=== PATIENT | male | born 1970 | race Caucasian/White ===

== ENCOUNTER 2020-04-25 07:43 | Outpatient (CLI) | payer OTHER, SELFPAY ==
--- NOTE | 2020-04-29 00:57 | SLEEP_ITS ---
Home Sleep Test DATE OF STUDY: 04/25/2020 REASON FOR THE STUDY: Hypersomnia. HISTORY: This patient is a 50-year-old male, 6 feet tall, 270 pounds with a body mass index of 36.6. He has complaints of fatigue for the last 5 years. He also has leg pain which he attributes to diabetes. He has fatigue and brain fog that has been impacting his ability severely over the last 2 months. 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 He frequently snores and it is frequently loud enough that others complain about it. He rarely has trouble sleeping with a cold. He does not wake up gasping for breath at night. He does not have breathing problems at night observed by others. He rarely sweats excessively at night. He does not notice his heart pounding or beating irregularly at night. He rarely falls asleep during the day, never involuntarily, and never while driving. He does not fall asleep during physical effort. He does not have loss of muscle tone with strong emotion. He frequently has daytime difficulties due to fatigue and excessive sleepiness. He does not feel paralyzed on waking or falling asleep. He does not have vivid dreamlike scenes upon awakening or falling asleep. He is not afraid to go to sleep. He rarely has nightmares. He frequently remembers his dreams. He occasionally has racing thoughts, feelings of sadness, depression, and anxiety. He frequently has muscular tension and leg pain. He rarely notices parts of his body jerking, never kicks at night. He frequently has crawly achy feelings in his legs and leg pain at night. He does not have morning jaw pain. He does not grind his teeth during sleep. He frequently is bothered by pain during the day, rarely is awakened by pain at night. He does not wake up feeling stiff in the morning. He frequently wakes up with sore achy muscles. He never has pain in the neck and spine in the morning. He has headaches, dizziness, fatigue, concentration difficulties, and takes antacids regularly. Normal bedtime is 11 p.m., taking 30 minutes to fall asleep, typically waking 1 time at night for 5 minutes. This occurs in the middle of the night and he will urinate at that time. He wakes in the morning at 7:30 a.m. Weekend schedule shows that he goes to bed at 1 a.m. and awakens at 10 a.m. He does not usually take naps. A short nap is not refreshing. He is usually drowsy in the morning for 3 hours or longer. He feels better in the evening than other times of day. MEDICAL COMORBIDITIES: Diabetes mellitus, heartburn, hyperlipidemia, mitral valve prolapse, history of pulmonary embolism, hypertension, history of chickenpox. MEDICATIONS: 1. Aspirin 81 mg a day. 2. Metformin 1000 mg b.i.d. 3. Multivitamin 1 daily. 4. Simvastatin 20 mg a day. 5. Vitamin D3 2000 units daily. 6. Vitamin B complex 1 daily. HABITS: Never smoked tobacco. Caffeine, 5 servings a day. Alcohol, 1 serving per week. No recreational drugs. DESCRIPTION OF THE STUDY: On the Westhoff Sleepiness Scale, his score is 2. This was conducted as an unattended type III portable home sleep test using 4-channel monitoring including respiratory effort channel, snoring channel, oxygen saturation channel, and heart rate channel. The study was scored using [facility] guidelines. Duration of the study was 7 hours 51 minutes. The apnea-hypopnea index is 10, lowest desaturation is 87%, he had a total of 9 apneas, 8 of these or 89% were obstructive, 1 apnea, 11% were central apneas, 69 hypopneas, 1039 snoring events with 1 minute spent below 88%. Heart rate ranged from 51 to 102. IMPRESSION: 1. This study provides evidence of at least mild obstructive sleep apnea syndrome, G47.33, with an apnea-hypopnea index of 10, significant desaturation to 87%. It is likely that his apnea-hypopnea
== END 2020-04-25 07:44 | disposition home or self-care (01) ==
LOC: ANHCSM 07:43
PROVIDERS: PCP Internal Medicine; Visit Provider Clinical Nurse Specialist
DX: G47.33 Obstructive sleep apnea (adult) (pediatric) (principal)
CPT/HCPCS: 95806

== ENCOUNTER 2020-04-30 07:35 | Outpatient (CLI) | payer OTHER, SELFPAY ==
--- NOTE | ~2020-04-30 | US_ITS ---
EXAMINATION: US right upper quadrant DATE: 04/30/2020 08:05 INDICATION: Abnormal liver function tests. TECHNIQUE: Multiple grayscale and Doppler ultrasound images of the abdomen were obtained. COMPARISON: None FINDINGS: The visualized portions of the head of the pancreas are normal. There is diffuse hepatic st eatosis. No liver surface nodularity. There is normal flow in main portal vein. The gallbladder is no rmal in size and contains gallstones. No gallbladder wall thickening or sonographic Garcia sign. The common duct is normal and measures 4 mm. IMPRESSION: 1. Diffuse hepatic steatosis. 2. Cholelithiasis. Reviewed, dictated and finalized at location A.
== END 2020-04-30 07:36 | disposition home or self-care (01) ==
PROVIDERS: PCP Internal Medicine; Visit Provider Clinical Nurse Specialist
DX: R74.8 Abnormal levels of other serum enzymes (principal); K76.0 Fatty (change of) liver, not elsewhere classified; K80.20 Calculus of gallbladder without cholecystitis without obstruction
CPT/HCPCS: 76705

== ENCOUNTER 2020-12-01 13:32 | Emergency (ER) | payer BC, SELFPAY ==
[2020-12-01] VITALS (17 sets, daily range): BP systolic 135–158; BP diastolic 86–93; PULSE 68–94; RESP 12–20; TEMP 36; O2SAT 94–98
--- NOTE | ~2020-12-01 | XR_ITS ---
XR chest 2V 12/01/2020 16:05 Indication: Hypertension. Anxiety. Diabetes. Procedure: PA and lateral views of the chest Comparison: Comparison to multiple prior studies sequentially, with oldest reviewed study dated 10/03. Findings: Heart size is normal. Chronic left basilar atelectasis/scarring unchanged. No focal air spa ce disease, pulmonary edema, pleural effusion or suspected pneumothorax. No acute osseous abnormality . Impression: 1: No acute cardiopulmonary disease. Reviewed, dictated and finalized at location A. Impression: 1: No acute cardiopulmonary disease.
--- NOTE | ~2020-12-01 | CT_ITS ---
EXAMINATION: CT brain wo con DATE: 12/01/2020 16:00 INDICATION: Confusion. TECHNIQUE: Computed tomography (CT) of the head was performed without intravenous contrast. The mA wa s adjusted according to patient size. Iterative reconstruction technique was employed. The dose-lengt h product was 605.33 mGy-cm. COMPARISON: None FINDINGS: There is no intracranial hemorrhage, acute infarction, or abnormal intracranial mass lesion . The ventricles are normal in size. The mastoid air cells are normal. There is mild mucosal thickeni ng in the paranasal sinuses. The orbits are normal. IMPRESSION: 1. Normal brain. Reviewed, dictated and finalized at location B. IMPRESSION: 1. Normal brain.
[2020-12-01 14:11] LABS: Basophils Absolute Auto 0.1 K/mm3 (0.0-0.1); Basophils Percent Auto 0.6 % (0.2-1.2); Eosinophils Absolute Auto 0.3 K/mm3 (0-0.3); Eosinophils Percent Auto 4.1 % (0-4.4); Hematocrit 43.9 % (42.0-52.0); Hemoglobin 15.1 g/dL (14.0-18.0); Immature Granulocyte Absolute 0.02 K/mm3 (0.00-0.031); Immature Granulocyte Percent A 0.3 % (0-0.5); Lymphocytes Percent Auto 37.5 % (18.3-44.2); Mean Corpuscular HGB Conc 34.4 g/dl (32-36); Mean Corpuscular Hemoglobin 32.1 pg (26-34); Mean Corpuscular Volume 93.4 fl (80-100); Mean Platelet Volume 9.7 fl (7.4-10.4); Monocytes Absolute Auto 0.6 K/mm3 (0.1-0.6); Monocytes Percent Auto 7.2 % (2.6-8.5); Neutrophils Absolute Auto 3.9 K/mm3 (1.3-6.7); Neutrophils Percent Auto 50.3 % (45.5-73.1); Platelet Count Result 291 k/mm3 (150-375); Red Cell Distribution Width 12.6 % (11.5-14.5); White Blood Count 7.7 K/mm3 (4.5-10.0)
[2020-12-01 14:21] LABS: Anion Gap 10 mmol/L (8-16); Blood Urea Nitrogen 17 mg/dL (9-20); Calcium 9.6 mg/dL (8.4-10.2); Carbon Dioxide 26 mmol/L (22-30); Chloride 102 mmol/L (98-107); Estimated CRCL calculation 111 ml/min; Estimated Glomerular Filt Rate > 60; Glucose 173 mg/dL (75-110); Potassium 4.5 mmol/L (3.4-5.0); Sodium 138 mmol/L (137-145)
--- NOTE | 2020-12-01 15:39 | ECG_ITS ---
Measurements Intervals [place] Rate: 75 P: 37 SD: 153 QRS: -20 QRSD: 93 T: 52 QT: 386 QTc: 432 Interpretive Statements SINUS RHYTHM EARLY PRECORDIAL R/S TRANSITION BORDERLINE ST-T WAVE ABNORMALITY- ANT/HIGH LAT LEADS BASELINE ARTIFACT- II, III, AVR, AVF, V1, V3-V6 BORDERLINE ECG Electronically Signed On 12-01-2020 19:57:27 CDT by Eric Cervantes D.O.
--- NOTE | 2020-12-01 16:00 | ED.GENADULT ---
HPI - General Adult General Chief complaint: Unspecified Stated complaint: restless legs, headache, htn Time Seen by Provider: 12/01/20 15:37 Source: patient Mode of arrival: ambulatory Limitations: no limitations History of Present Illness HPI narrative: This is a 50 year old male that presents to the ER for symptoms ongoing over the last couple of weeks. Reports restless legs, elevated blood pressure and feeling of fogginess . He had a televisit with his psychiatrist today who sent him into the ER for evaluation of possible serotonin syndrome. Reports his bupropion and Trintellix were increased prior to symptoms starting. Denies fever, vision changes, vomiting, numbness or weakness. Related Data Home Medications Medication Instructions Recorded Confirmed aspirin 81 mg tablet,delayed 81 mg PO DAILY 08/26/19 10/11/20 release blood sugar diagnostic #10 each 08/26/19 10/11/20 metformin 1,000 mg tablet 1,000 mg PO BID 08/26/19 10/11/20 multivitamin 1 tablet PO DAILY 08/26/19 10/11/20 cholecalciferol (vitamin D3) 25 2,000 unit PO DAILY cap 03/10/20 10/11/20 mcg (1,000 unit) capsule insulin glargine U-300 conc 300 56 unit SUB-Q DAILY ml 08/25/20 10/11/20 unit/mL (3 mL) subcutaneous pen insulin lispro 100 unit/mL 18 unit SUB-Q TID ml 08/25/20 10/11/20 subcutaneous pen bupropion HCl 150 mg 24 hr tablet, 300 mg PO QAM 10/11/20 10/11/20 extended release ascorbic acid (vitamin C) 12/01/20 vortioxetine [Trintellix] 10 mg PO DAILY 12/01/20 Allergies Allergy/AdvReac Type Severity Reaction Status Date / Time canagliflozin Allergy Unknown Rash Verified 12/01/20 13:55 MOLD/CATS Allergy Mild Rash Uncoded 05/09/20 07:57 Review of Systems Review of Systems: Narrative: CONSTITUTIONAL: Denies fever EYES: Denies visual changes CARDIOVASCULAR: Denies chest pain RESPIRATORY: Denies dyspnea. GASTROINTESTINAL: Denies vomiting NEUROLOGIC: Denies headache, numbness, or weakness. PSYCHIATRIC: Reports anxiety and depression. All systems reviewed & are unremarkable except as noted in HPI and below [facility] Past Medical History Medical History (Updated 12/01/20 @ 18:53 by Graciela Otoole PA-C) Allergies Chicken pox Diabetes DKA (diabetic ketoacidoses) DVT (deep venous thrombosis) Heart burn Hemorrhoids HLD (hyperlipidemia) Mitral valve prolapse Pulmonary embolism Family History Family History (Updated 02/10/18 @ 11:13 by DOCTOR UNKNOWN) Mother Family history of thyroid disease Family history of hyperthyroidism Father Hypertension Family history of elevated blood lipids Family history of diabetes mellitus in first degree relative Social History Social History (Updated 08/26/19 @ 09:49 by Sagrario Vaughn, [facility]) Smoking status: Never smoker Second hand tobacco smoke exposure: No Alcohol intake: current Gender identity (if verbalized by the patient): Male Exam Narrative: Exam Narrative: GENERAL: Well-appearing, well-nourished, and in no acute distress. HEAD: Normocephalic, atraumatic. EYES: PERRLA and EOMI. ENT: Nares clear, no rhinorrhea or epistaxis. Mucous membranes moist. Oropharynx without tonsillar hypertrophy exudate or other lesions. Bilateral TMs pearly adkins non-bulging NECK: Supple. No adenopathy or masses. CHEST: Clear to auscultation. No respiratory distress. No wheezes rales or rhonchi HEART: Regular rate and rhythm. No murmur heard. Normal peripheral pulses. ABDOMEN: Soft, nontender, nondistended, normal active bowel sounds. EXTREMITIES: Normal range of motion. No edema. Normal patellar reflexes SKIN: Warm, dry, no rash. NEURO: No focal deficits. Alert and oriented x3. Cranial nerves II through XII grossly intact. Normal Babinski PSYCH: Anxious appearing, patient's legs are shaking. He can stop this when asked Course Reevaluation(s) Reevaluation #1: Patient feeling much better after Ativan, resting comfortably Date: 12/01/20 Time: 18:30 Consultations Consultation #1: Spoke
[2020-12-01 16:07] LABS: INR 0.9; Prothrombin Time 12.5 Seconds (11.1-14.7)
[2020-12-01 16:14] LABS: Alanine Aminotransferase 72 U/L (4-50); Albumin Level 4.4 g/dL (3.5-5.1); Alkaline Phosphatase 83 U/L (38-126); Aspartate Amino Transferase 58 U/L (17-59); Bilirubin,Total 0.5 mg/dL (0.2-1.3)
[2020-12-01] MEDS: LORazepam INJ (*CRX) 2 MG/ML VIAL 1 MG IV PUSH (16:18)
[2020-12-01 16:40] LABS: Creatine Kinase 74 U/L (55-170)
[2020-12-01 17:09] LABS: Add Urine Microscopic? YES; Appearance Urine Clear (Clear); Bilirubin Urine Negative (Negative); Blood Urine Negative (Negative); Color Urine Yellow (Yellow); Glucose Urine UA Negative (Negative); Ketones Urine Negative (Negative); Leukocyte Esterase Ur Negative LEU/UL (Negative); Mucus Urine Rare /lpf; Nitrate Urine Negative (Negative); Protein Urine Negative (Negative); RBC Urine 0-2 /hpf (0-2); Specific Grav Ur 1.018 (1.001-1.035); Urobilinogen Urine Negative mg/dL (<2.0); WBC Urine 0-3 /hpf
== END 2020-12-01 19:25 | disposition home or self-care (01) ==
PROVIDERS: Emergency Medicine; Physician Assistant; Emergency Provider Emergency Medicine; PCP Internal Medicine
DX: F41.9 Anxiety disorder, unspecified (principal); E11.9 Type 2 diabetes mellitus without complications; E78.5 Hyperlipidemia, unspecified; I34.1 Nonrheumatic mitral (valve) prolapse; Z86.718 Personal history of other venous thrombosis and embolism; Z86.711 Personal history of pulmonary embolism; Z79.82 Long term (current) use of aspirin; Z79.4 Long term (current) use of insulin; R94.31 Abnormal electrocardiogram [ECG] [EKG]
CPT/HCPCS: 36415; 70450; 71046; 80048; 80076; 81001; 82550; 85025; 85610; 85730; 93005; 96374; 99284; J2060

== ENCOUNTER → 2021-06-21 03:36 | Outpatient (CLI) | payer BC, SELFPAY ==
[2021-06-21 18:11] LABS: SARS-CoV-2 RNA PCR Negative
== END ==
PROVIDERS: PCP Internal Medicine; Visit Provider Clinical Nurse Specialist
DX: Z20.822 Contact with and (suspected) exposure to COVID-19 (principal)
CPT/HCPCS: C9803; U0003; U0005

== ENCOUNTER 2022-12-13 08:34 | Outpatient (CLI) | payer OTHER, SELFPAY ==
[2022-12-13 12:43] LABS: Kit Draw Collected
== END 2022-12-13 08:35 | disposition home or self-care (01) ==
LOC: ANHGOSHLAB 08:35
PROVIDERS: PCP Internal Medicine; Visit Provider Clinical Nurse Specialist
DX: E78.5 Hyperlipidemia, unspecified (principal); Z13.228 Encounter for screening for other metabolic disorders; F32.9 Major depressive disorder, single episode, unspecified
CPT/HCPCS: 36415